=== PATIENT | female | born 2000 | race Caucasian/White ===

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

== ENCOUNTER 2018-05-05 14:14 | Emergency (ER) | payer MEDICAID ==
[~2018-05-05] VITALS: Ht 157.5 cm; Wt 48.1 kg
[2018-05-05 14:39] VITALS: Ht 157.5 cm; Wt 48.1 kg
[2018-05-05 17:46] LABS: BASOPHIL % 0.3 % (0-2); PLATELET COUNT 218 x10^3mcL (130-400); RED CELL DISTRIBUTION WIDTH 13.2 % (11.5-14.5)
[2018-05-05 17:54] LABS: CALCIUM 8.6 mg/dL (8.5-10.1); CARBON DIOXIDE 25.8 mmol/L (21-32); CHLORIDE SERUM 108 mmol/L (98-107); CREATININE SERUM 0.8 mg/dL (0.6-1.0); GFR1 > 60 mL/min; GLUCOSE SERUM 95 mg/dL (74-106); POTASSIUM SERUM 3.4 mmol/L (3.5-5.1); SODIUM SERUM 142 mmol/L (136-145)
[2018-05-05 17:58] LABS: ALKALINE PHOSPHATASE 52 U/L (46-116); ALT/SGPT 11 U/L (14-59); AMYLASE 58 U/L (25-115); AST/SGOT 14 U/L (15-37); BILIRUBIN TOTAL 0.34 mg/dL (0.20-1.00); LIPASE 191 IU/L (73-393); TOTAL PROTEIN, SERUM 7.4 g/dL (6.4-8.2)
[2018-05-05 18:53] VITALS: BP 125/78
== END 2018-05-05 18:53 | disposition home or self-care (01) ==
LOC: ED 14:14
PROVIDERS: Specialist
DX: R10.11 Right upper quadrant pain (principal); R35.0 Frequency of micturition
CPT/HCPCS: 36415; J1885; Q0092